=== PATIENT | male | born 1970 | race Caucasian/White ===

== ENCOUNTER 2019-12-20 10:43 | Observation (INO) | payer BC ==
[2019-12-20] MEDS ORDERED: Nitroglycerin 2% Ointment 1 INCH/1 GM Packet ONE (11:19)
--- NOTE | 2019-12-20 11:21 | RAD ---
EXAM: Single view of the chest HISTORY: Chest pain COMPARISON: None FINDINGS: Single view of the chest shows a normal sized cardiomediastinal silhouette. There is no kishan dence of consolidation, mass, or pleural effusion. The bones are unremarkable. IMPRESSION: No evidence of acute cardiopulmonary disease
[2019-12-20 11:39] LABS: #Basophils 0.1 thou/uL (0.0-0.2); #Eosinphils 0.2 thou/uL (0.0-0.7); #Lymphocytes 2.2 thou/uL (1.20-3.40); #Monocytes 0.4 thou/uL (0.11-0.59); #Neutrophils 3.2 thou/uL (1.40-6.50); %Basophils 1.1 % (0.0-1.0); %Lymphocytes 36.8 % (21.0-51.0); %Monocytes 7.2 % (0.0-10.0); %Neutrophils 51.9 % (42.0-75.0); Hemoglobin 14.6 g/dL (14.0-18.0); Mean Corpuscular HGB CONC 33.8 g/dL (32.0-36.0); Mean Corpuscular Hemoglobin 32.9 pg (27.0-31.0); Mean Corpuscular Volume 97.4 fL (78.0-98.0); Mean Platelet Volume 6.8 fL (7.4-10.4); Platelet Count 307 thou/uL (130-400); RBC Distribution Width 11.8 % (11.5-14.5); Red Blood Cell (RBC) Count 4.44 mill/uL (4.70-6.10); White Blood Cell (WBC) Count 6.1 thou/uL (4.8-10.8)
[2019-12-20 12:13] LABS: ALT (SGPT) 26 U/L (8-55); AST (SGOT) 24 U/L (5-34); Albumin 4.3 g/dL (3.5-5.0); Alkaline Phosphatase 66 U/L (40-110); Anion Gap 12 mmol/L (10-20); BUN (Urea Nitrogen) 21 mg/dL (8.9-20.6); Bilirubin, Total 0.6 mg/dL (0.2-1.2); CK (CPK) 91 U/L (30-200); Calc. Creatinine Clearance 0 mL/min (70-130); Calcium 9.2 mg/dL (7.8-10.44); Carbon Dioxide 25 mmol/L (22-29); Chloride 106 mmol/L (98-107); Estimated GFR-MDRD 81; Globulin 2.2 g/dL (2.4-3.5); Glucose 89 mg/dL (70-105); Lipase 20 U/L (8-78); Potassium 3.9 mmol/L (3.5-5.1); Protein, Total 6.5 g/dL (6.0-8.3); Sodium 139 mmol/L (136-145)
[2019-12-20] MEDS ORDERED: Senokot S 8.6-50 MG TAB PO PRN (12:27)
[2019-12-20] MEDS ORDERED: Acetaminophen 325 MG TAB PO PRN (12:27)
[2019-12-20 15:10] LABS: Troponin I Less than 0.010 ng/mL (< 0.028)
[2019-12-20 16:07] VITALS: BMI 28.6
[2019-12-20] MEDS ORDERED: Ondansetron PF 4 MG/2 ML Vial IVP PRN (17:21)
[2019-12-20] MEDS: Fioricet 325/50/40 mg Tablet PO PRN ×2 (17:40→21:45)
[2019-12-20 18:19] LABS: Troponin I Less than 0.010 ng/mL (< 0.028)
--- NOTE | 2019-12-20 19:36 | HP ---
CHIEF COMPLAINT: Chest pain. HISTORY OF PRESENT ILLNESS: The patient is a very pleasant 49-year-old male with no significant past medical history, who presents to the hospital with complaints of left-sided chest pain, radiating to his left arm, starting today while he was driving. The patient states that he does lift heavy objects; however, he has never had this pain before. He described it as a cramping pain that lasted for about 25 to 30 minutes until he went to the urgent care. He denies any shortness of breath, any nausea, vomiting, or any diaphoresis. PAST MEDICAL HISTORY: He has had a tonsillectomy, ACL in 2005, left hand in 2017, he had a right shoulder surgery. FAMILY HISTORY: Father at the age of 62 with heart disease. Mother is still alive. ALLERGIES: NO KNOWN DRUG ALLERGIES. MEDICATIONS: He takes none. SOCIAL HISTORY: He denies any alcohol use, drug use, or smoking history. He is a full code. REVIEW OF SYSTEMS: All negative except for the ones mentioned above in the HPI. LABORATORY RESULTS: WBC 6.1, hemoglobin 14.6, hematocrit of 43.3, platelets of 307. Chemistry; sodium of 139, potassium of 3.9, BUN of 21, and creatinine 0.98. Troponins x3 were negative. His EKG did not show any acute abnormalities. His chest x-ray indicated normal. ASSESSMENT AND PLAN: The patient is a very pleasant 49-year-old male, who presents to the hospital with complaints of chest pain. 1. Chest pain. We will go ahead and do a stress test, given his risk factors. He has seen a wildland fire fighter in 2004, Dr. Reed, and he has had a stress test done. We will go ahead and repeat the stress test today and keep him n.p.o. and if normal, may possible discharge. He recently had lipid levels done at Dr. España's office and I do have the results. His LDL was 106, HDL was 58, triglycerides were 147, and cholesterol was 193. So, I am not going to repeat them. He also had an EKG from Dr. España's office that was similar to the one from the ER. However, the one from Dr. España's office was kind of hard to read, however, it appeared to be similar. 2. Deep venous thrombosis prophylaxis. We will put the patient on SCDs. Again, we will just do a stress test. If it is negative, we will discharge the patient home. I have recommended to follow up with Dr. Reed if his stress test is negative, just for further care since he has a very high family history of heart disease. Job ID: [id number]
[2019-12-20] MEDS ORDERED: Atorvastatin Calcium 20 MG TAB PO SCH (21:00)
[2019-12-21 04:51] LABS: #Basophils 0.1 thou/uL (0.0-0.2); #Eosinphils 0.3 thou/uL (0.0-0.7); #Lymphocytes 2.3 thou/uL (1.20-3.40); #Monocytes 0.4 thou/uL (0.11-0.59); %Basophils 1.2 % (0.0-1.0); %Eosinophils 4.9 % (0.0-10.0); %Lymphocytes 37.5 % (21.0-51.0); %Monocytes 7.2 % (0.0-10.0); %Neutrophils 49.3 % (42.0-75.0); Hemoglobin 13.9 g/dL (14.0-18.0); Mean Corpuscular HGB CONC 32.8 g/dL (32.0-36.0); Mean Corpuscular Hemoglobin 31.9 pg (27.0-31.0); Mean Corpuscular Volume 97.3 fL (78.0-98.0); Mean Platelet Volume 7.3 fL (7.4-10.4); Platelet Count 301 thou/uL (130-400); RBC Distribution Width 11.8 % (11.5-14.5); Red Blood Cell (RBC) Count 4.35 mill/uL (4.70-6.10); White Blood Cell (WBC) Count 6.1 thou/uL (4.8-10.8)
[2019-12-21 05:16] LABS: Anion Gap 9 mmol/L (10-20); BUN (Urea Nitrogen) 17 mg/dL (8.9-20.6); Calc. Creatinine Clearance 126 mL/min (70-130); Calcium 9.1 mg/dL (7.8-10.44); Carbon Dioxide 29 mmol/L (22-29); Chloride 106 mmol/L (98-107); Estimated GFR-MDRD 83; Glucose 88 mg/dL (70-105); Sodium 140 mmol/L (136-145)
[2019-12-21] MEDS ORDERED: Enoxaparin Sodium 40 MG/0.4 ML SYRINGE SC SCH (09:00)
[2019-12-21] MEDS ORDERED: Aspirin 81 mg Enteric Coated Tablet PO SCH (09:00)
[2019-12-21 11:48] VITALS: BP 123/75; TEMP 98
--- NOTE | 2019-12-21 13:03 | STRESS ---
Acquisition Time: 2019-12-21 10:09:59 Total Exercise Time: 00:11:00 Test Indications: CHEST PAIN Medications: Protocol: LESVIA Max HR: 155 BPM 90% of Pred: 171 BPM Max BP: 192/088 mmHG Max Work Load: 13.4 METS THE PATIENT EXERCISED FOR 11:00 ON A LESVIA PROTOCOL. PEAK HEART RATE= 153 BPM AND TARGET HEART RATE= 145 BPM. HE DID NOT DEVELOP CHEST PAIN. THERE WAS NO SIGNIFICANT ST DEPRESSION. NEGATIVE EXERCISE TREADMILL TEST. AWAIT NUCLEAR IMAGES FOR DEFINITIVE DIAGNOSIS. Confirmed by JENNI BALLARD ([id number]), editor greeting card ARLYN CONDE ([id number]) on 12/21/2019 1:03:01 PM Referred By: MD Meghan GARCIA Confirmed By:JENNI BALLARD
--- NOTE | 2019-12-21 13:36 | NM ---
CARDIAC SPECT: 12/21/19 HISTORY: 49-year-old male with chest pain. TECHNIQUE: A myocardial perfusion scan is performed using the single isotope one day protocol with technetium 99 m Sestamibi. 10 millicuries injected intravenously for the rest exam followed by 33 millicuries for t he stress study. Exercise test was monitored and interpreted by Dr. Joseph. FINDINGS: Homogeneous tracer distribution seen in the myocardial segments on stress and rest images without fix ed or reversible defects. Gated SPECT LVEF: 76%. Wall motion exam: Normal. IMPRESSION: Normal myocardial perfusion scan. POS: TPC
--- NOTE | 2019-12-21 15:27 | DIS ---
DATE OF ADMISSION: 12/20/2019 DATE OF DISCHARGE: 12/21/2019 PRIMARY CARE PROVIDER: Dr. Quinn España. DISCHARGE DIAGNOSIS: Chest pain, most likely secondary to musculoskeletal etiology. CONDITION OF PATIENT ON THE DAY OF DISCHARGE: Stable. I assessed Mr. Whittaker on the day of discharge. He denies any chest pain or shortness of breath. Vital signs are stable. S1 and S2 are heard, regular. Lungs are clear to auscultation bilaterally. DISCHARGE MEDICATIONS: None. HOSPITAL COURSE: Mr. Whittaker is a pleasant 49-year-old gentleman, who was admitted to [facility] on December 20, 2019 for chest pain. Chest pain resolved shortly after admission. Pulmonary embolism was ruled out with a negative D-dimer. He had a nuclear stress test, which was normal. Left ventricular ejection fraction was 76%. He is being discharged home in a stable condition. Post acute care followup: With primary care provider in 3 days. ACTIVITY: No restrictions. DIET: Regular. DISCHARGE DESTINATION: Home. Many thanks for allowing me to participate in your patient's care. Please feel free to contact me with any questions or concerns. Job ID: [id number]
--- NOTE | 2019-12-22 14:58 | EKG ---
Test Reason : Blood Pressure : / mmHG Vent. Rate : 063 BPM Atrial Rate : 063 BPM P-R Int : 158 ms QRS Dur : 078 ms QT Int : 396 ms P-R-T Axes : 004 018 019 degrees QTc Int : 405 ms Normal sinus rhythm ST elevation, consider early repolarization Borderline ECG Confirmed by DORIAN JONES, DIETER ([id number]), commissioning editor AMADA MERCADO ([id number]) on 12/22/2019 2:58:11 PM Referred By: Confirmed By:DIETER ALARCON MD
== END 2019-12-21 14:09 | disposition home or self-care (01) ==
LOC: ERS 10:43 → ERHOLD 12:30 → 2SW 16:01
PROVIDERS: ADMIT Internal Medicine; ATTEND Internal Medicine
DX: R07.9 Chest pain, unspecified (principal); Z79.82 Long term (current) use of aspirin; Z88.0 Allergy status to penicillin
CPT/HCPCS: 36415; 71045; 78452; 80048; 80053; 82550; 83690; 83880; 84484; 85025; 85379; 93005; 93017; 96360; 96361; 96374; A9500; G0378; J2405

== ENCOUNTER → 2025-05-16 | Day surgery (SDC) | payer BC ==
[2025-05-16 13:24] LABS: #Basophils 0.07 10x3/uL (0.0-0.2); #Eosinophils 0.21 10x3/uL (0.0-0.7); #Monocytes 0.38 10x3/uL (0.11-0.59); #Neutrophils 3.10 10x3/uL (1.40-6.50); %Basophils 1.2 % (0.0-1.0); %Eosinophils 3.5 % (0.0-10.0); %Lymphocytes 37.4 % (21.0-51.0); %Monocytes 6.3 % (0.0-10.0); %Neutrophils 51.3 % (42.0-75.0); Hematocrit 36.8 % (42.0-52.0); Hemoglobin 12.3 g/dL (14.0-18.0); Mean Corpuscular Hemoglobin 31.5 pg (27.0-31.0); Mean Corpuscular Volume 94.1 fL (78.0-98.0); Platelet Count 341 10x3/uL (130-400); Red Blood Cell (RBC) Count 3.91 mill/uL (4.70-6.10); White Blood Cell (WBC) Count 6.04 10x3/uL (4.8-10.8)
[2025-05-16 13:57] LABS: CRP, High Sensitivity at Bryan 0.99 mg/dL (< or = 0.5)
[2025-05-16 13:58] LABS: ALT (SGPT) 52 U/L (Less than 45); AST (SGOT) 46 U/L (11-34); Albumin 3.6 g/dL (3.1-4.5); Alkaline Phosphatase 113 U/L (40-110); Anion Gap 13 mmol/L (10-20); BUN (Urea Nitrogen) 22 mg/dL (8.4-25.7); Bilirubin, Total 0.4 mg/dL (0.3-1.2); CK (CPK) 78 U/L (30-200); Calc. Creatinine Clearance 0 mL/min (70-130); Calcium 8.7 mg/dL (7.8-10.44); Carbon Dioxide 27 mmol/L (22-29); Chloride 105 mmol/L (98-107); Globulin 3.2 g/dL (2.4-3.5); Glucose 109 mg/dL (70-105); Potassium 4.0 mmol/L (3.5-5.1); Sodium 141 mmol/L (136-145)
== END ==
LOC: ONC/OP 12:55
PROVIDERS: ATTEND Internal Medicine
DX: Z45.2 Encounter for adjustment and management of vascular access device (principal); Z88.0 Allergy status to penicillin
CPT/HCPCS: 36592; 80053; 82550; 85025; 86141; 99212; G0463